=== PATIENT | female | born 1985 | race Caucasian/White ===

== ENCOUNTER 2016-04-03 10:56 | Emergency (ER) | payer OTHER ==
[2016-04-03 11:37] VITALS: BP 160/128
--- NOTE | 2016-04-03 12:05 | UC ---
Skin Complaint HPI - HPI Summary HPI Summary: The patient comes in today for: 1. Head swelling: Onset: two days ago. Palliative/provocative: Laying down helps with the pain. Swelling is worse when she is up on her feet. Quality: Sharp and throbbing. Region: Right posterior head pain, and left frontal headache. Severity: 6/10 Time: Constant. Associated symptoms: Headache: She has pain at the right posterior "lump" area and also a left frontal headache. Hearing: Decreased hearing of the right ear. Numbness: Right jaw line, left neck and back of the neck on the left. Today is the 3rd day of numbness. No numbness or weakness elsewhere. Injury: None Fevers: None. "I am really tired." * - History of Current Complaint Chief Complaint: UCGeneralIllness Time Seen by Provider: 04/03/16 11:55 Stated Complaint: LUMP ON HEAD AND NECK Hx Obtained From: Patient Hx Last Menstrual Period: DEPO ?: No - Allergy/Home Medications Allergies/Adverse Reactions: Allergies Allergy/AdvReac Type Severity Reaction Status Date / Time No Known Allergies Allergy Verified 09/20/15 11:58 Home Medications: Home Medications NK [No Home Medications Reported] 04/03/16 [History Confirmed 04/03/16] Review of Systems Constitutional: Negative Skin: Negative Eyes: Negative ENT: Negative Respiratory: Negative Cardiovascular: Negative Gastrointestinal: Negative Genitourinary: Negative All Other Systems Reviewed And Are Negative: Yes PMH/Surg Hx/FS Hx/Imm Hx Previously Healthy: Yes Endocrine History Of: Denies: Diabetes, Thyroid Disease, Hyperthyroidism, Hypothyroidism, Dyslipidemia Cardiovascular History Of: Denies: Cardiac Disorders, Hypertension, Pacemaker/ICD, Myocardial Infarction , Congestive Heart Failure, Atrial Fibrillation, Deep Vein Thrombosis, Bleeding Disorders Respiratory History Of: Reports: Asthma - COLD INDUCED, not on Rx at this time. Denies: COPD, Bronchitis, Pneumonia, Pulmonary Embolism GI/ History Of: Denies: Gastroesophageal Reflux, Ulcer, Gastrointestinal Bleed, Gall Bladder Disease, Kidney Stones, Diverticulitis, Renal Disease, Urosepsis Neurological History Of: Denies: TIA, CVA, Dementia, Seizures, Migraine Psychological History Of: Reports: Anxiety - She used to have panic attacks but not in the last 4 years. No Rx. Denies: Depression, Bipolar Disorder, Schizophrenia, Post Traumatic Stress Disorder Cancer History Of: Denies: Lung Cancer, Colorectal Cancer, Breast Cancer, Prostate Cancer, Cervical Cancer Other History Of: Negative For: HIV, Hepatitis B, Hepatitis C - Surgical History Surgical History: None - Family History Known Family History: Positive: Cardiac Disease, Hypertension - Social History Occupation: Employed Full-time Alcohol Use: Rare Substance Use Type: None Smoking Status (MU): Heavy Every Day Tobacco Smoker Amount Used/How Often: 1 PPD Physical Exam Triage Information Reviewed: Yes Appearance: Well-Appearing, No Pain Distress, Well-Nourished Vital Signs: Initial Vital Signs Temp 98.0 F 04/03/16 11:32 Pulse 94 04/03/16 11:32 Resp 18 04/03/16 11:32 BP 160/128 04/03/16 11:32 Pulse Ox 100 04/03/16 11:32 Repeat BP:160/94, sitting, left arm, large cuff. Vital Signs Reviewed: Yes Eyes: Positive: Conjunctiva Clear. Negative: Discharge ENT: Positive: Hearing grossly normal, Other: - The patient had no obvious swelling of the right posterior neck. There is also tenderness to the post- auricular area and around the superior/inferior nuchal line.. Negative: Pharyngeal erythema, Nasal congestion, Nasal drainage, TM bulging, TM dull, TM red, Tonsillar swelling, Tonsillar exudate Dental: Negative: Gross Decay/Caries @, Dental Fracture @ Neck: Positive: Supple, Nontender, No Lymphadenopathy. Negative: Nuchal Rigidity Respiratory: Positive: Lungs clear, No respiratory distress, No accessory muscle use. Negative: Crackles, Wheezing Cardiovascular: Positive: RRR, No Murmur Abdomen Description: Positive: Nontender, No Organomegaly, Soft. Negative: Distended, Guarding Musculoskeletal: Positive: Strength Intact, ROM Intact, No Edema Neurological: Positive: Alert, Muscle Tone Normal, Lethargic, Other: - Neurologic exam: Inspection: no fasciculations. Cranial nerves (II-XII): intact Muscular tone: appropriate for age and body size and symmetrical Reflexes: Biceps: 1+/2 x 2 Triceps: 1+/2 x 2 Brachioradialis: 2+/2 x 2 Patellar: 2+/2 x 2 Coordination: Upper extremity: Alternating patting of thighs, alternating fingertips to thumb, index finger tip to nose--all normal. Lower extremity: Heel along christian--normal. Strength: Upper extremity: appropriate for age and symmetrical Lower extremity: appropriate for age and symmetrical Gait: normal. Sensation: No complaint of numbness except from about C3 to C8 dermatome over the right posterior shoulder. Psychological: Positive: Age Appropriate Behavior, Consolable Skin: Negative: rashes, breakdown Course/Dx - Course Course Of Treatment: Patient was told that I did not have an explanation for her new onset numbness/headache. She was told of her treatment options and since she wanted an expedited evaluation/work-up, she decided on going to the ER. - Differential Diagnoses - Skin Complaint Differential Diagnoses: Other - Multiple sclerosis, cerebral infarction, atypical migrane - Diagnoses Provider Diagnoses: Right posterior shoulder numbness, headache. - Physician Notification/Consults Discussed Patient Care With: Dr Laws Time Discussed With Above Provider: 12:34 Discharge - Discharge Plan Condition: Stable Disposition: AGAINST MEDICAL ADVICE Forms: *Work Release Referrals: No Primary Care Phys,NOPCP [Primary Care Provider] - Additional Instructions: Please go directly to the [facility] [place] ER.
== END 2016-04-03 12:47 | disposition left against medical advice (07) ==
LOC: UCEAST 10:56
DX: R20.0 Anesthesia of skin (principal); R51 Headache; F17.210 Nicotine dependence, cigarettes, uncomplicated
CPT/HCPCS: 99212; G0463

== ENCOUNTER 2016-04-03 13:03 | Emergency (ER) | payer OTHER | END 2016-04-03 13:13 | disposition left against medical advice (07) | LOC: ED 13:03 | DX: R22.1 Localized swelling, mass and lump, neck (principal) ==

== ENCOUNTER 2017-03-25 15:36 | Emergency (ER) | payer MEDICAID ==
--- NOTE | 2017-03-25 15:40 | UC ---
General HPI - HPI Summary HPI Summary: 31 y/o white female presents with blurry vision and increased blood sugar. She tells me that over the past week she has had increased thirst, dizziness, intermittent blurry vision, nausea, and nocturia. One of her family member is diabetic - she used her blood glucose machine this morning to check her own sugars and it read 575. She did not want to go to the ER, so she drove here to Urgent Care. She currently is experiencing dizziness and blurry vision. Denies recent illness, SOB, chest pain, abdominal pain, N/V/D/C, or pain. She tells me that she does not have a PCP and hates going to the doctor, therefore hasn't had routine care in many years. She denies hx of diabetes. - History of Current Complaint Stated Complaint: SPIKE IN BLOOD SUGAR,BLURRED VISION Time Seen by Provider: 03/25/17 15:38 Hx Obtained From: Patient Hx Last Menstrual Period: DEPO Onset/Duration: Gradual Onset - Allergy/Home Medications Allergies/Adverse Reactions: Allergies Allergy/AdvReac Type Severity Reaction Status Date / Time No Known Allergies Allergy Verified 03/25/17 16:03 PMH/Surg Hx/FS Hx/Imm Hx Other History Of: Negative For: HIV, Hepatitis B, Hepatitis C - Surgical History Surgical History: None - Family History Known Family History: Positive: Cardiac Disease, Hypertension - Social History Occupation: Employed Full-time Lives: With Family Alcohol Use: Rare Substance Use Type: None Smoking Status (MU): Heavy Every Day Tobacco Smoker Amount Used/How Often: 1 PPD Review of Systems Constitutional: Negative, Other - Increased thirst Skin: Negative Eyes: Blurred Vision ENT: Negative Respiratory: Negative Cardiovascular: Negative Gastrointestinal: Nausea Genitourinary: Frequency Motor: Negative Neurovascular: Negative Musculoskeletal: Negative Neurological: Other - Dizziness Psychological: Negative All Other Systems Reviewed And Are Negative: Yes Physical Exam Triage Information Reviewed: Yes Appearance: Well-Appearing, No Pain Distress, Obese Vital Signs Reviewed: Yes Eyes: Positive: Conjunctiva Clear, Other: - EOMI. PERRLA.. Negative: Conjunctiva Inflamed, Discharge Neck: Positive: Supple, Nontender, No Lymphadenopathy Respiratory: Positive: Chest non-tender, Lungs clear, Normal breath sounds, No respiratory distress, No accessory muscle use Cardiovascular: Positive: No Murmur, Pulses Normal, Tachycardia Abdomen Description: Positive: Nontender, No Organomegaly, Soft. Negative: Distended, Guarding Bowel Sounds: Positive: Present Musculoskeletal: Positive: Strength Intact, ROM Intact Neurological: Positive: Alert, Other: - CN II-XII grossly intact. Appropriate speech and able to follow two step directions.. Negative: Fatigued, Lethargic Psychological: Positive: Age Appropriate Behavior Course/Dx - Course Course Of Treatment: POC glucose was drawn and read as "high" on our machine. I am unsure what the cutoff range for this machine is, but patient had a self reported BG of 575 earlier today without dx of diabetes. EKG reveals sinus tachycardia at [address] or T wave abnormalities - reviewed by Dr. Coombs. IV access was obtained and 1L 0.9% NS was administered. I discussed with the patient the need for a higher level of care in the Emergency Room. I recommended to her that she should go to the ER via ambulance, as she drove herself here. She was agreeable to this plan. An ambulance was called and [place] [facility] [place] Called report to Jennifer MOSQUERA in [facility] [place]. - Differential Dx - Multi-Symptom Provider Diagnoses: Elevated blood glucose without dx of diabetes. Increased thirst. Dizziness. Blurry vision. Nausea Discharge - Discharge Plan Condition: Stable Disposition: TRANS HIGHER LVL OF CARE FAC Referrals: No Primary Care Phys,NOPCP [Primary Care Provider] - Additional Instructions: [place] [facility] [place]
[2017-03-25] MEDS ORDERED: NS 0.9% 1000 ML* 1,000 ML IV ONE ×2 (15:44→15:56)
[2017-03-25 16:22] VITALS: BP 190/118
== END 2017-03-25 16:23 | disposition short-term general hospital (02) ==
LOC: UCEAST 15:36
DX: R73.9 Hyperglycemia, unspecified (principal); Z83.3 Family history of diabetes mellitus; Z72.0 Tobacco use; R63.1 Polydipsia; H53.8 Other visual disturbances; R11.0 Nausea
CPT/HCPCS: 96360; 99213; G0463

== ENCOUNTER 2017-03-25 16:41 | Emergency (ER) | payer MEDICAID, OTHER ==
[2017-03-25] MEDS ORDERED: NS 0.9% 1000 ML* 1,000 ML IV ONE (17:42)
[2017-03-25 18:09] LABS: ABS Basophils 0.1 10^3/ul (0-0.2); ABS Eosinophils 0.2 10^3/ul (0-0.6); ABS Lymphocytes 4.7 10^3/ul (1.0-4.8); ABS Monocytes 0.8 10^3/ul (0-0.8); ABS Neutrophils 7.9 10^3/ul (1.5-7.7); ABS Nucleated RBC 0.01 10^3/ul; Eosinophil % 1.1 % (0-6); Hematocrit 40 % (35-47); Hemoglobin 13.8 g/dl (12.0-16.0); Lymphocyte % 34.3 % (25-47); Mean Corpuscular HGB Conc 35 g/dl (31-36); Mean Corpuscular Hemoglobin 31 pg (27-31); Mean Corpuscular Volume 89 fL (80-97); Mean Platelet Volume 9 um3 (7.4-10.4); Nucleated Red Blood Cells % 0; Platelet Count 284 10^3/ul (150-450); Red Blood Count 4.51 10^6/ul (4.0-5.4); Red Cell Distribution Width 13 % (10.5-15); White Blood Count 13.7 10^3/ul (3.5-10.8)
[2017-03-25 18:20] LABS: EGFR Non-African American 95.4 (>60)
[2017-03-25] MEDS ORDERED: Insulin REGULAR(*) 1 UNITS UNIT SUBCUT ONE (18:24)
[2017-03-25] MEDS ORDERED: metFORMIN* 500 MG TAB PO ONE (20:27)
[2017-03-25 21:12] VITALS: BP 137/66
--- NOTE | 2017-03-26 07:48 | ED ---
Aaron Oakley Angela, scribed for Sidney Lakhani MD on 03/25/17 at 1742 . HPI Diabetic - HPI Summary HPI Summary: this pt is a 31 y/o female presenting to [facility] via EMS from [facility] c/o hyperglycemia. Pt reports associated symptoms include teeth and gum swelling, weak, fatigue, blurred vision (worse today), polydipsia. She states her glucose at home was 573. En route from Urgent Care, EMS reports pt's glucose was 473. Pt states currently feeling better. Pt has never been diagnosed with diabetes. - History Of Current Complaint Chief Complaint: EDDiabeticProb Time Seen by Provider: 03/25/17 17:37 Hx Obtained From: Patient Hx Last Menstrual Period: DEPO Onset/Duration: Lasting Days, Still Present, Worse Since - today Timing: Days Character: Other - generalized weak, fatigue Aggravating: Nothing Alleviating: Nothing Associated Signs & Symptoms: Polydipsia - Allergies/Home Medications Allergies/Adverse Reactions: Allergies Allergy/AdvReac Type Severity Reaction Status Date / Time No Known Allergies Allergy Verified 03/25/17 16:03 PMH/Surg Hx/FS Hx/Imm Hx Endocrine/Hematology History: Reports: Hx Diabetes Denies: Hx Thyroid Disease Cardiovascular History: Denies: Hx Congestive Heart Failure, Hx Deep Vein Thrombosis, Hx Hypertension , Hx Myocardial Infarction, Hx Pacemaker/ICD Respiratory History: Reports: Hx Asthma - COLD INDUCED, not on Rx at this time. Denies: Hx Chronic Obstructive Pulmonary Disease (COPD), Hx Lung Cancer, Hx Pneumonia, Hx Pulmonary Embolism GI History: Denies: Hx Gall Bladder Disease, Hx Gastrointestinal Bleed, Hx Ulcer, Hx Urosepsis History: Denies: Hx Kidney Stones, Hx Renal Disease Neurological History: Denies: Hx Dementia, Hx Migraine, Hx Seizures, Hx Transient Ischemic Attacks (TIA) Psychiatric History: Reports: Hx Anxiety - She used to have panic attacks but not in the last 4 years. No Rx. Denies: Hx Depression, Hx Schizophrenia, Hx Bipolar Disorder Infectious Disease History: No Infectious Disease History: Denies: Hx Clostridium Difficile, Hx Hepatitis, Hx Human Immunodeficiency Virus (HIV), Hx of Known/Suspected MRSA, Hx Shingles, Hx Tuberculosis, Hx Known/ Suspected VRE, Hx Known/Suspected VRSA, History Other Infectious Disease, Traveled Outside the [place] in Last 30 Days - Family History Known Family History: Positive: Cardiac Disease, Hypertension - Social History Alcohol Use: Rare Substance Use Type: Reports: None Smoking Status (MU): Heavy Every Day Tobacco Smoker Amount Used/How Often: 1 PPD Review of Systems Constitutional: Other - hyperglycemia Positive: Fatigue. Negative: Fever Eyes: Other - visual changes Positive: Blurred Vision ENT: Other - polydipsia Cardiovascular: Negative Respiratory: Negative Gastrointestinal: Negative Positive: Weakness - generalized All Other Systems Reviewed And Are Negative: Yes Physical Exam - Summary Physical Exam Summary: Appearance: The patient is well-nourished in no acute distress and in no acute pain. Skin: The skin is warm and dry and skin color reflects adequate perfusion. HEENT: The head is normocephalic and atraumatic. The pupils are equal and reactive. The conjunctivae are clear and without drainage. Nares are patent and without drainage. Mouth reveals moist mucous membranes and the throat is without erythema and exudate. The external ears are intact. The ear canals are patent and without drainage. The tympanic membranes are intact. Neck: the neck is supple with full range of motion and non-tender. There are no carotid bruits. There is no neck vein distension. Respiratory: Chest is non-tender. Lungs are clear to auscultation and breath sounds are symmetrical and equal. Cardiovascular: Heart is regular rate and rhythm. There is no murmur or rub auscultated. There is no peripheral edema and pulses are symmetrical and equal. Abdomen: The abdomen is soft and non-tender. There are normal bowel sounds heard in all four quadrants and there is no organomegaly palpated. Musculoskeletal: There is no back tenderness noted. Extremities are non-tender with full range of motion. There is good capillary refill. There is no peripheral edema or calf tenderness elicited. Neurological: Patient is alert and oriented to person, place and time. The patient has symmetrical motor strength in all four extremities. Cranial nerves are grossly intact. Deep tendon reflexes are symmetrical and equal in all four extremities. Psychiatric: The patient has an appropriate affect and does not exhibit any anxiety or depression. Triage Information Reviewed: Yes Vital Signs On Initial Exam: Initial Vitals Temp Pulse Resp BP Pulse Ox 99 F 112 20 171/94 97 03/25/17 16:48 03/25/17 16:48 03/25/17 16:48 03/25/17 16:48 03/25/17 16:48 Vital Signs Reviewed: Yes Diagnostics - Vital Signs Vital Signs Temp Pulse Resp BP Pulse Ox 03/25/17 16:48 99 F 112 20 171/94 97 - Laboratory Lab Results: Lab Results 03/25/17 03/25/17 03/25/17 Range/Units 17:55 17:55 17:55 WBC 13.7 H (3.5-10.8) 10^3/ul RBC 4.51 (4.0-5.4) 10^6/ul Hgb 13.8 (12.0-16.0) g/dl Hct 40 (35-47) % MCV 89 (80-97) fL MCH 31 (27-31) pg MCHC 35 (31-36) g/dl RDW 13 (10.5-15) % Plt Count 284 (150-450) 10^3/ul MPV 9 (7.4-10.4) um3 Neut % (Auto) 58.0 (38-83) % Lymph % (Auto) 34.3 (25-47) % Bracken % (Auto) 5.9 (1-9) % Eos % (Auto) 1.1 (0-6) % Baso % (Auto) 0.7 (0-2) % Absolute Neuts (auto) 7.9 H (1.5-7.7) 10^3/ul Absolute Lymphs (auto) 4.7 (1.0-4.8) 10^3/ul Absolute Monos (auto) 0.8 (0-0.8) 10^3/ul Absolute Eos (auto) 0.2 (0-0.6) 10^3/ul Absolute Basos (auto) 0.1 (0-0.2) 10^3/ul Absolute Nucleated RBC 0.01 10^3/ul Nucleated RBC % 0 VBG pH (7.33-7.43) VBG pCO2 (41-51) mmHg VBG pO2 (35-45) mmHg VBG HCO3 (24-28) mmol/L VBG O2 Saturation (70-80) % VBG Base Excess (0-4) Sodium 131 L (133-145) mmol/L Potassium 3.7 (3.5-5.0) mmol/L Chloride 103 (101-111) mmol/L Carbon Dioxide 19 L (22-32) mmol/L Anion Gap 9 (2-11) mmol/L BUN 12 (6-24) mg/dL Creatinine 0.71 (0.51-0.95) mg/dL Est GFR ( Amer) 122.7 (>60) Est GFR (Non-Af Amer) 95.4 (>60) BUN/Creatinine Ratio 16.9 (8-20) Glucose 396 H (70-100) mg/dL POC Glucose (mg/dL) (70-100) mg/dL Lactic Acid 2.2 H* (0.5-2.0) mmol/L Calcium 8.3 L (8.6-10.3) mg/dL Total Bilirubin 0.30 (0.2-1.0) mg/dL AST 17 (13-39) U/L ALT 13 (7-52) U/L Alkaline Phosphatase 113 H (34-104) U/L C-Reactive Protein 12.52 H (< 5.00) mg/L Total Protein 6.7 (6.4-8.9) g/dL Albumin 3.7 (3.2-5.2) g/dL Globulin 3.0 (2-4) g/dL Albumin/Globulin Ratio 1.2 (1-3) Beta HCG, Quant < 0.60 mIU/mL 03/25/17 03/25/17 03/25/17 Range/Units 18:25 19:33 20:21 WBC (3.5-10.8) 10^3/ul RBC (4.0-5.4) 10^6/ul Hgb (12.0-16.0) g/dl Hct (35-47) % MCV (80-97) fL MCH (27-31) pg MCHC (31-36) g/dl RDW (10.5-15) % Plt Count (150-450) 10^3/ul MPV (7.4-10.4) um3 Neut % (Auto) (38-83) % Lymph % (Auto) (25-47) % Bracken % (Auto) (1-9) % Eos % (Auto) (0-6) % Baso % (Auto) (0-2) % Absolute Neuts (auto) (1.5-7.7) 10^3/ul Absolute Lymphs (auto) (1.0-4.8) 10^3/ul Absolute Monos (auto) (0-0.8) 10^3/ul Absolute Eos (auto) (0-0.6) 10^3/ul Absolute Basos (auto) (0-0.2) 10^3/ul Absolute Nucleated RBC 10^3/ul Nucleated RBC % VBG pH 7.44 H (7.33-7.43) VBG pCO2 31 L (41-51) mmHg VBG pO2 78 H (35-45) mmHg VBG HCO3 23.2 L (24-28) mmol/L VBG O2 Saturation 97.6 H (70-80) % VBG Base Excess -2.0 L (0-4) Sodium (133-145) mmol/L Potassium (3.5-5.0) mmol/L Chloride (101-111) mmol/L Carbon Dioxide (22-32) mmol/L Anion Gap (2-11) mmol/L BUN (6-24) mg/dL Creatinine (0.51-0.95) mg/dL Est GFR ( Amer) (>60) Est GFR (Non-Af Amer) (>60) BUN/Creatinine Ratio (8-20) Glucose (70-100) mg/dL POC Glucose (mg/dL) 418 H* 330 H (70-100) mg/dL Lactic Acid (0.5-2.0) mmol/L Calcium (8.6-10.3) mg/dL Total Bilirubin (0.2-1.0) mg/dL AST (13-39) U/L ALT (7-52) U/L Alkaline Phosphatase (34-104) U/L C-Reactive Protein (< 5.00) mg/L Total Protein (6.4-8.9) g/dL Albumin (3.2-5.2) g/dL Globulin (2-4) g/dL Albumin/Globulin Ratio (1-3) Beta HCG, Quant mIU/mL Result Diagrams: 03/25/17 17:55 03/25/17 17:55 Lab Statement: Any lab studies that have been ordered have been reviewed, and results considered in the medical decision making process. Diabetic Course/Dx - Course Course Of Treatment: Ms. Bland noted symptoms of polydipsia, polyuria and blurred vision as well as just 'not feeling well' and checked her FSG which was elevated. She went to [facility] and they sent her here. She had hyperglycemia here without significant acidosis and was treated with IV NS and a bit of SQ regular insulin. I will start metformin and encourage her to F/U this week with the Physician Referral Service to follow this and educate her. - Diagnoses Provider Diagnoses: Hyperglycemia Discharge - Discharge Plan Condition: Stable Disposition: HOME Prescriptions: metFORMIN* [Glucophage 500 MG TAB *] 500 mg PO DAILY #10 tab Patient Education Materials: Hyperglycemia, Non-Diabetic (ED) Referrals: [facility] [place] [facility]ERR[facility] [Outside] - As Soon As Possible Additional Instructions: Please follow up with your primary care provider. CALL THEIR OFFICE TOMORROW TO SCHEDULE AN APPOINTMENT. RETURN TO THE ED FOR ANY WORSENING SYMPTOMS. The documentation as recorded by the Aaron capellan Angela accurately reflects the service I personally performed and the decisions made by me, Sidney Lakhani MD.
== END 2017-03-25 21:10 | disposition home or self-care (01) ==
LOC: ED 16:41
DX: E11.65 Type 2 diabetes mellitus with hyperglycemia (principal); R53.83 Other fatigue; R53.1 Weakness; H53.8 Other visual disturbances; F17.210 Nicotine dependence, cigarettes, uncomplicated; Z87.09 Personal history of other diseases of the respiratory system
CPT/HCPCS: 36415; 80053; 82803; 83605; 84702; 85025; 86140; 99282; A9270-GY